=== PATIENT | male | born 1970 | race Caucasian/White ===

== ENCOUNTER 2018-06-01 08:07 | Inpatient (IN) | payer BC, OTHER ==
[~2018-06-01] VITALS: Ht 193 cm; Wt 84.7 kg
[2018-06-01] MEDS ORDERED: ketorolac trometh. 30mg/ml inj. IV ONE (08:20)
[2018-06-01] MEDS ORDERED: ondansetron/PF 4mg/2ml inj IV ONE (08:20)
[2018-06-01] MEDS ORDERED: normal saline 1000ML IV soln IVB ONE (08:20)
[2018-06-01 08:44] LABS: BASOPHILS # (AUTO) 0.1 X10'3 (0-0.2); BASOPHILS % (AUTO) 0.3 % (0-1); EOSINOPHILS # (AUTO) 0.3 X10'3 (0-0.9); EOSINOPHILS % (AUTO) 1.7 % (0-6); HEMATOCRIT 43.2 % (42.0-52.0); HEMOGLOBIN 14.6 g/dl (14.0-17.9); LYMPHOCYTES # (AUTO) 1.7 X10'3 (1.1-4.8); LYMPHOCYTES % (AUTO) 11.1 % (21-51); MEAN CORPUSCULAR HEMOGLOBIN 30.1 PG (27.0-31.0); MEAN CORPUSCULAR HGB CONC 33.8 % (33.0-36.5); MEAN CORPUSCULAR VOLUME 89.1 FL (78-98); MEAN PLATELET VOLUME 8.3 FL (7.4-10.4); MONOCYTES # (AUTO) 1.1 X10'3 (0-0.9); MONOCYTES % (AUTO) 7.2 % (2-12); NEUTROPHILS # (AUTO) 12.1 X10'3 (1.8-7.7); NEUTROPHILS % (AUTO) 79.7 % (42-75); PLATELET COUNT 185 X10'3 (140-440); RED BLOOD COUNT 4.85 X10'6 (4.70-6.10); RED CELL DISTRIBUTION WIDTH 14.2 % (11.5-14.5); WHITE BLOOD COUNT 15.1 X10'3 (4.5-11.0)
[2018-06-01 08:54] LABS: PROTHROMBIN TIME 10.3 SECONDS (9.0-12.0)
[2018-06-01 09:02] LABS: ALANINE AMINOTRANSFERASE 21 U/L (12-78); ALBUMIN 3.4 G/DL (3.4-5.0); ALBUMIN/GLOBULIN RATIO 0.9 (1.1-1.5); ALKALINE PHOSPHATASE 62 IU/L (46-116); ANION GAP 4 (8-16); ASPARTATE AMINO TRANSFERASE 13 U/L (10-37); BILIRUBIN,TOTAL 0.6 MG/DL (0.1-1.0); BLOOD UREA NITROGEN 10 MG/DL (7-18); BUN/CREATININE RATIO 8.9 (5.4-32.0); CALCIUM 9.2 MG/DL (8.5-10.1); CHLORIDE 105 MMOL/L (99-107); CREATININE 1.12 MG/DL (0.60-1.10); GLUCOSE 123 MG/DL (70-104); POTASSIUM 4.3 MMOL/L (3.5-5.1); SODIUM 137 MMOL/L (135-145); TOTAL CARBON DIOXIDE 28.2 MMOL/L (24-32); TOTAL PROTEIN 7.1 G/DL (6.4-8.2); eGFR 70 ML/MIN
[2018-06-01] MEDS ORDERED: normal saline 1000ML IV soln IV ONE (09:30)
[2018-06-01] MEDS ORDERED: morphine 4 MG/ML inj SYRINge IV ONE (09:30)
[2018-06-01] MEDS ORDERED: piperacillin/tazo 3.375gm/50ml 50 ML IV ONE (09:30)
[2018-06-01 09:54] LABS: CLARITY,URINE CLOUDY (Clear); GLUCOSE, URINE NEGATIVE (Neg); KETONES,URINE 15 mg/dl (Neg); LEUKOCYTE ESTERASE ,URINE NEGATIVE (Neg); NITRITES, URINE POSITIVE (Neg); OCCULT BLOOD,URINE TRACE-INTACT (Neg); PH,URINE 5.5 (4.8-8.0); PROTEIN,URINE 30 mg/dl (Neg)
[2018-06-01] MEDS ORDERED: NO HOME MEDS (09:54)
[2018-06-01 10:02] LABS: UA COLLECTION TYPE CLN CATCH MIDSTREAM
[2018-06-01 10:08] LABS: COLOR,URINE DARK YELLOW (Yellow)
[2018-06-01 10:11] LABS: AMORPHOUS URATES 1+; BACTERIA,URINE FEW /HPF (Neg); MUCUS STRANDS MANY /LPF (Neg); RBC,URINE 0-2 /HPF (0-2); SQUAMOUS EPITHELIAL CELL,UR FEW /LPF (FEW)
[2018-06-01 10:12] LABS: HYALINE CASTS 0-3 /LPF (NEGATIVE)
[2018-06-01] MEDS: sodium chloride 0.45% 1,000 ML IV SCH ×2 (11:19→22:24)
[2018-06-01] MEDS ORDERED: bisacodyl 10mg suppository rectal RC PRN (11:20)
[2018-06-01] MEDS ORDERED: morphine 4 MG/ML inj SYRINge IV PRN ×2 (11:20)
[2018-06-01] MEDS ORDERED: ondansetron/PF 4mg/2ml inj IV PRN (11:20)
[2018-06-01 15:00] VITALS: BP 111/50
[2018-06-01] MEDS ORDERED: metoclopramide 5 mg/ml inj IV PRN (15:40)
[2018-06-01] MEDS: ketorolac tromethamine 15mg/ml inj. IV PRN (16:16)
[2018-06-01] MEDS: piperacillin/tazo 3.375gm/50ml 50 ML IV SCH (16:53)
[2018-06-01 18:00] VITALS: BP 98/60
[2018-06-01] MEDS ORDERED: LORazepam 2 mg/ml vial IV PRN (19:15)
[2018-06-01 20:00] VITALS: BP 98/53
[2018-06-02] VITALS: BP 106/42
[2018-06-02] MEDS: piperacillin/tazo 3.375gm/50ml 50 ML IV SCH ×3 (00:02→16:14)
[2018-06-02 05:10] LABS: BASOPHILS % (AUTO) 0.1 % (0-1); EOSINOPHILS # (AUTO) 0.1 X10'3 (0-0.9); EOSINOPHILS % (AUTO) 0.6 % (0-6); HEMATOCRIT 37.4 % (42.0-52.0); HEMOGLOBIN 12.7 g/dl (14.0-17.9); LYMPHOCYTES # (AUTO) 1.5 X10'3 (1.1-4.8); LYMPHOCYTES % (AUTO) 7.4 % (21-51); MEAN CORPUSCULAR HEMOGLOBIN 29.8 PG (27.0-31.0); MEAN CORPUSCULAR VOLUME 87.6 FL (78-98); MEAN PLATELET VOLUME 8.4 FL (7.4-10.4); MONOCYTES % (AUTO) 5.1 % (2-12); NEUTROPHILS # (AUTO) 17.2 X10'3 (1.8-7.7); NEUTROPHILS % (AUTO) 86.8 % (42-75); PLATELET COUNT 160 X10'3 (140-440); RED BLOOD COUNT 4.27 X10'6 (4.70-6.10); RED CELL DISTRIBUTION WIDTH 13.7 % (11.5-14.5); WHITE BLOOD COUNT 19.9 X10'3 (4.5-11.0)
[2018-06-02 05:42] LABS: ALANINE AMINOTRANSFERASE 19 U/L (12-78); ALBUMIN 2.6 G/DL (3.4-5.0); ALBUMIN/GLOBULIN RATIO 0.8 (1.1-1.5); ALKALINE PHOSPHATASE 59 IU/L (46-116); ANION GAP 12 (8-16); ASPARTATE AMINO TRANSFERASE 15 U/L (10-37); BILIRUBIN,TOTAL 1.6 MG/DL (0.1-1.0); BLOOD UREA NITROGEN 11 MG/DL (7-18); BUN/CREATININE RATIO 9.6 (5.4-32.0); CALCIUM 8.3 MG/DL (8.5-10.1); CHLORIDE 107 MMOL/L (99-107); CREATININE 1.15 MG/DL (0.60-1.10); GLUCOSE 87 MG/DL (70-104); POTASSIUM 3.8 MMOL/L (3.5-5.1); SODIUM 140 MMOL/L (135-145); TOTAL CARBON DIOXIDE 21.5 MMOL/L (24-32); eGFR 68 ML/MIN
[2018-06-02 06:36] LABS: PLATELET ESTIMATE NORMAL; TOTAL CELLS COUNTED 100
[2018-06-02 07:00] VITALS: BP 128/53
[2018-06-02] MEDS: sodium chloride 0.45% 1,000 ML IV SCH ×2 (07:31→21:50)
[2018-06-02 14:12] LABS: C DIFF ANTIGEN NEGATIVE (NEGATIVE); C DIFF SPECIMEN=DIARRHEA? ACCEPTABLE; C DIFFICILE TOXINS A&B NEGATIVE (Neg)
[2018-06-02] MEDS: ketorolac tromethamine 15mg/ml inj. IV PRN ×2 (16:15→22:02)
[2018-06-02 18:00] VITALS: BP 98/60
[2018-06-02] MEDS: nicotine 14mg patch - 24hr TD SCH (21:00)
[2018-06-03] VITALS: BP 117/50
[2018-06-03] MEDS: piperacillin/tazo 3.375gm/50ml 50 ML IV SCH ×4 (00:08→23:07)
[2018-06-03] MEDS: sodium chloride 0.45% 1,000 ML IV SCH ×3 (03:19→16:03)
[2018-06-03 05:55] LABS: ALANINE AMINOTRANSFERASE 60 U/L (12-78); ALBUMIN 2.5 G/DL (3.4-5.0); ALBUMIN/GLOBULIN RATIO 0.7 (1.1-1.5); ALKALINE PHOSPHATASE 167 IU/L (46-116); ANION GAP 11 (8-16); ASPARTATE AMINO TRANSFERASE 55 U/L (10-37); BLOOD UREA NITROGEN 9 MG/DL (7-18); BUN/CREATININE RATIO 8.7 (5.4-32.0); CALCIUM 8.4 MG/DL (8.5-10.1); CHLORIDE 106 MMOL/L (99-107); CREATININE 1.04 MG/DL (0.60-1.10); GLUCOSE 104 MG/DL (70-104); POTASSIUM 3.8 MMOL/L (3.5-5.1); SODIUM 138 MMOL/L (135-145); TOTAL CARBON DIOXIDE 20.8 MMOL/L (24-32); TOTAL PROTEIN 6.1 G/DL (6.4-8.2); eGFR 77 ML/MIN
[2018-06-03 06:23] LABS: BASOPHILS % (AUTO) 0 % (0-1); EOSINOPHILS % (AUTO) 0.2 % (0-6); HEMATOCRIT 34.8 % (42.0-52.0); HEMOGLOBIN 11.9 g/dl (14.0-17.9); LYMPHOCYTES # (AUTO) 0.8 X10'3 (1.1-4.8); LYMPHOCYTES % (AUTO) 5.6 % (21-51); MEAN CORPUSCULAR HEMOGLOBIN 30.3 PG (27.0-31.0); MEAN CORPUSCULAR HGB CONC 34.3 % (33.0-36.5); MEAN CORPUSCULAR VOLUME 88.4 FL (78-98); MEAN PLATELET VOLUME 8.9 FL (7.4-10.4); MONOCYTES # (AUTO) 0.8 X10'3 (0-0.9); MONOCYTES % (AUTO) 5.7 % (2-12); NEUTROPHILS # (AUTO) 12.3 X10'3 (1.8-7.7); NEUTROPHILS % (AUTO) 88.5 % (42-75); PLATELET COUNT 161 X10'3 (140-440); RED BLOOD COUNT 3.94 X10'6 (4.70-6.10); WHITE BLOOD COUNT 13.9 X10'3 (4.5-11.0)
[2018-06-03 07:06] VITALS: BP 119/62
[2018-06-03] MEDS: nicotine 14mg patch - 24hr TD SCH (07:29)
[2018-06-03] MEDS: HYDROcodone/acetaminophen 5mg/325mg tablet PO PRN ×4 (07:40→23:07)
[2018-06-03 11:44] VITALS: BP 117/54
[2018-06-03 18:00] VITALS: BP 109/67
[2018-06-03] MEDS: lactobacillus rhamnosus 10,000 MMU CELLS/CAPSULE PO SCH (19:04)
[2018-06-04] VITALS: BP 114/55
[2018-06-04 05:10] LABS: BASOPHILS % (AUTO) 0.4 % (0-1); EOSINOPHILS # (AUTO) 0.2 X10'3 (0-0.9); EOSINOPHILS % (AUTO) 2.9 % (0-6); HEMATOCRIT 32.5 % (42.0-52.0); HEMOGLOBIN 10.9 g/dl (14.0-17.9); LYMPHOCYTES # (AUTO) 1.2 X10'3 (1.1-4.8); LYMPHOCYTES % (AUTO) 14.5 % (21-51); MEAN CORPUSCULAR HEMOGLOBIN 29.6 PG (27.0-31.0); MEAN CORPUSCULAR HGB CONC 33.4 % (33.0-36.5); MEAN CORPUSCULAR VOLUME 88.4 FL (78-98); MEAN PLATELET VOLUME 7.8 FL (7.4-10.4); MONOCYTES # (AUTO) 0.7 X10'3 (0-0.9); MONOCYTES % (AUTO) 8.4 % (2-12); NEUTROPHILS % (AUTO) 73.8 % (42-75); PLATELET COUNT 157 X10'3 (140-440); RED BLOOD COUNT 3.67 X10'6 (4.70-6.10); RED CELL DISTRIBUTION WIDTH 14.1 % (11.5-14.5); WHITE BLOOD COUNT 8.1 X10'3 (4.5-11.0)
[2018-06-04] MEDS: HYDROcodone/acetaminophen 5mg/325mg tablet PO PRN ×2 (05:10→23:15)
[2018-06-04] MEDS: sodium chloride 0.45% 1,000 ML IV SCH ×2 (05:11→17:52)
[2018-06-04 05:57] LABS: ALANINE AMINOTRANSFERASE 60 U/L (12-78); ALBUMIN 2.2 G/DL (3.4-5.0); ALBUMIN/GLOBULIN RATIO 0.6 (1.1-1.5); ALKALINE PHOSPHATASE 164 IU/L (46-116); ANION GAP 2 (8-16); ASPARTATE AMINO TRANSFERASE 37 U/L (10-37); BILIRUBIN,TOTAL 0.8 MG/DL (0.1-1.0); BLOOD UREA NITROGEN 6 MG/DL (7-18); BUN/CREATININE RATIO 5.5 (5.4-32.0); CALCIUM 8.4 MG/DL (8.5-10.1); CHLORIDE 107 MMOL/L (99-107); GLUCOSE 87 MG/DL (70-104); POTASSIUM 3.8 MMOL/L (3.5-5.1); SODIUM 137 MMOL/L (135-145); TOTAL CARBON DIOXIDE 27.6 MMOL/L (24-32); TOTAL PROTEIN 5.7 G/DL (6.4-8.2); eGFR 72 ML/MIN
[2018-06-04 07:00] VITALS: BP 123/55
[2018-06-04] MEDS: lactobacillus rhamnosus 10,000 MMU CELLS/CAPSULE PO SCH ×2 (07:21→19:00)
[2018-06-04] MEDS: nicotine 14mg patch - 24hr TD SCH (07:21)
[2018-06-04] MEDS: piperacillin/tazo 3.375gm/50ml 50 ML IV SCH ×3 (07:22→23:11)
[2018-06-04 10:50] VITALS: BP 125/52
[2018-06-04 18:00] VITALS: BP 110/64
[2018-06-04 23:38] VITALS: BP 102/70
[2018-06-05] MEDS: sodium chloride 0.45% 1,000 ML IV SCH (04:41)
[2018-06-05 05:06] LABS: BASOPHILS % (AUTO) 0.2 % (0-1); EOSINOPHILS # (AUTO) 0.3 X10'3 (0-0.9); EOSINOPHILS % (AUTO) 4.4 % (0-6); HEMATOCRIT 32.8 % (42.0-52.0); HEMOGLOBIN 11.1 g/dl (14.0-17.9); LYMPHOCYTES # (AUTO) 1.6 X10'3 (1.1-4.8); LYMPHOCYTES % (AUTO) 27.6 % (21-51); MEAN CORPUSCULAR HEMOGLOBIN 29.7 PG (27.0-31.0); MEAN CORPUSCULAR VOLUME 87.4 FL (78-98); MEAN PLATELET VOLUME 8.1 FL (7.4-10.4); MONOCYTES # (AUTO) 0.7 X10'3 (0-0.9); MONOCYTES % (AUTO) 11.3 % (2-12); NEUTROPHILS # (AUTO) 3.3 X10'3 (1.8-7.7); NEUTROPHILS % (AUTO) 56.5 % (42-75); PLATELET COUNT 185 X10'3 (140-440); RED BLOOD COUNT 3.75 X10'6 (4.70-6.10); RED CELL DISTRIBUTION WIDTH 13.8 % (11.5-14.5); WHITE BLOOD COUNT 5.9 X10'3 (4.5-11.0)
[2018-06-05 05:20] LABS: ALANINE AMINOTRANSFERASE 54 U/L (12-78); ALBUMIN 2.3 G/DL (3.4-5.0); ALBUMIN/GLOBULIN RATIO 0.7 (1.1-1.5); ALKALINE PHOSPHATASE 178 IU/L (46-116); ANION GAP 6 (8-16); ASPARTATE AMINO TRANSFERASE 27 U/L (10-37); BILIRUBIN,TOTAL 0.5 MG/DL (0.1-1.0); BLOOD UREA NITROGEN 6 MG/DL (7-18); BUN/CREATININE RATIO 5.6 (5.4-32.0); CALCIUM 8.6 MG/DL (8.5-10.1); CHLORIDE 107 MMOL/L (99-107); CREATININE 1.07 MG/DL (0.60-1.10); GLUCOSE 85 MG/DL (70-104); POTASSIUM 3.8 MMOL/L (3.5-5.1); SODIUM 140 MMOL/L (135-145); TOTAL CARBON DIOXIDE 26.6 MMOL/L (24-32); TOTAL PROTEIN 5.6 G/DL (6.4-8.2); eGFR 74 ML/MIN
[2018-06-05 07:09] VITALS: BP 123/75
[2018-06-05] MEDS: piperacillin/tazo 3.375gm/50ml 50 ML IV SCH ×2 (07:36→13:56)
[2018-06-05] MEDS: lactobacillus rhamnosus 10,000 MMU CELLS/CAPSULE PO SCH (07:36)
[2018-06-05] MEDS: nicotine 14mg patch - 24hr TD SCH (07:37)
[2018-06-05] MEDS ORDERED: LEVO500T2 PO (08:33)
[2018-06-05] MEDS ORDERED: METR500T4 PO (08:33)
[2018-06-05] MEDS ORDERED: HYDR-569 PO (08:33)
[2018-06-05 11:00] VITALS: BP 126/53
== END 2018-06-05 15:07 | disposition home or self-care (01) | DRG 391 ==
LOC: ER 08:08 → ED HOLD 11:19 → EDBEDREQ 14:25 → SUR 3N 14:57
PROVIDERS: ADMIT Emergency Medicine; ATTEND Internal Medicine
DX: K57.20 Diverticulitis of large intestine with perforation and abscess without bleeding (principal); E43 Unspecified severe protein-calorie malnutrition; N39.0 Urinary tract infection, site not specified; D64.9 Anemia, unspecified; F12.90 Cannabis use, unspecified, uncomplicated; R16.0 Hepatomegaly, not elsewhere classified; F17.200 Nicotine dependence, unspecified, uncomplicated; Z88.7 Allergy status to serum and vaccine; Z79.899 Other long term (current) drug therapy; Z68.22 Body mass index [BMI] 22.0-22.9, adult
CPT/HCPCS: 36415; 74176; 80053; 81001; 83605; 85025; 85610; 87040; 87070; 87088; 87324; 87449; 96361; 96365; 96375; 99285; A6250; J1885; J2270; J2405; J2543; J2765; J7030

== ENCOUNTER 2018-07-07 05:37 | Inpatient (IN) | payer BC ==
[2018-07-02 11:35] LABS: BASOPHILS # (AUTO) 0.1 X10'3 (0-0.2); BASOPHILS % (AUTO) 0.6 % (0-1); EOSINOPHILS # (AUTO) 0.3 X10'3 (0-0.9); EOSINOPHILS % (AUTO) 2.6 % (0-6); LYMPHOCYTES # (AUTO) 2.3 X10'3 (1.1-4.8); LYMPHOCYTES % (AUTO) 22.7 % (21-51); MEAN CORPUSCULAR HEMOGLOBIN 29.8 PG (27.0-31.0); MEAN CORPUSCULAR VOLUME 87.7 FL (78-98); MEAN PLATELET VOLUME 7.7 FL (7.4-10.4); MONOCYTES # (AUTO) 0.8 X10'3 (0-0.9); MONOCYTES % (AUTO) 7.5 % (2-12); NEUTROPHILS # (AUTO) 6.6 X10'3 (1.8-7.7); NEUTROPHILS % (AUTO) 66.6 % (42-75); PRE OP HEMATOCRIT 40.3 % (42.0-52.0); PRE OP HEMOGLOBIN 13.7 g/dL (14.0-17.9); PRE OP PLATELET COUNT 293 X10'3 (140-440); RED BLOOD COUNT 4.59 X10'6 (4.70-6.10); RED CELL DISTRIBUTION WIDTH 13.7 % (11.5-14.5)
[2018-07-02 11:42] LABS: CLARITY,URINE CLEAR (Clear); COLOR,URINE YELLOW (Yellow); GLUCOSE, URINE NEGATIVE (Neg); KETONES,URINE NEGATIVE (Neg); LEUKOCYTE ESTERASE ,URINE NEGATIVE (Neg); NITRITES, URINE NEGATIVE (Neg); OCCULT BLOOD,URINE NEGATIVE (Neg); PH,URINE 6.5 (4.8-8.0); PROTEIN,URINE NEGATIVE (Neg); UROBILINOGEN,URINE 0.2 E.U/dL (0.2-1.0)
[2018-07-02 11:44] LABS: UA COLLECTION TYPE NON-SPECIFIED
[2018-07-02 11:45] LABS: PRE OP PROTIME 10.2 SECONDS (9.0-12.0)
[2018-07-02 11:49] LABS: ALBUMIN 3.3 G/DL (3.4-5.0); ALBUMIN/GLOBULIN RATIO 0.9 (1.1-1.5); ALKALINE PHOSPHATASE 68 IU/L (46-116); BLOOD UREA NITROGEN 9 MG/DL (7-18); BUN/CREATININE RATIO 10.2 (5.4-32.0); CALCIUM 8.7 MG/DL (8.5-10.1); CHLORIDE 108 MMOL/L (99-107); CREATININE 0.88 MG/DL (0.60-1.10); PRE OP ALT 24 U/L (30-65); PRE OP ANION GAP 8 (8-16); PRE OP AST 12 U/L (10-37); PRE OP BILIRUB, TOTAL 0.4 MG/DL (0.0-1.0); PRE OP GLUCOSE 100 MG/DL (70-104); PRE OP POTASSIUM 4.6 MMOL/L (3.4-5.1); PRE OP SODIUM 140 MMOL/L (135-145); TOTAL CARBON DIOXIDE 24.1 MMOL/L (24-32); TOTAL PROTEIN 6.8 G/DL (6.4-8.2); eGFR > 90 ML/MIN
[~2018-07-07] VITALS: Ht 193 cm; Wt 86.2 kg
[2018-07-07] VITALS (15 sets, daily range): BP systolic 90–148; BP diastolic 55–90
[~2018-07-07 05:37] MED LIST: HYDR-569 PO; NAPR220T67 PO; ceFOXitin 2 GM ADDvantage bag 100 ML IV ONE; famotidine 20mg tablet PO ONE; ringers solution, lacted 1,000 ML IV SCH
[2018-07-07] MEDS ORDERED: LIDOcaine 1% (10mg/ml) 2ml vial ONE (05:59)
[2018-07-07] MEDS ORDERED: ceFAZolin 1000mg inj ONE ×2 (06:43→08:13)
[2018-07-07] MEDS ORDERED: BUPIVAcaine/PF 2.5mg/ml (0.25%) 10ml vial ONE (06:44)
[2018-07-07] MEDS ORDERED: propofol inj 20 ML IV ONE (07:17)
[2018-07-07] MEDS ORDERED: rocuronium 10mg/ml inj IV ONE (07:17)
[2018-07-07] MEDS ORDERED: fentaNYL /PF 50mcg/ml 5ml ampule ONE (07:17)
[2018-07-07] MEDS ORDERED: midazolam 2 mg/2 ml injection ONE (07:17)
[2018-07-07] MEDS ORDERED: sevoflurane 250ml liquid IH ONE (07:32)
[2018-07-07] MEDS ORDERED: acetaminophen 325mg tablet PO PRN (08:45)
[2018-07-07] MEDS ORDERED: mag hydrox/Alum hydrox/simeth 30ml oral suspension PO PRN (08:45)
[2018-07-07] MEDS ORDERED: CADD PCA waste documentation MC PRN (08:45)
[2018-07-07] MEDS ORDERED: magnesium hydroxide 30ml (MOM) UD suspension PO PRN (08:45)
[2018-07-07] MEDS ORDERED: naloxone 0.4 mg/ml inj IV PRN (08:45)
[2018-07-07] MEDS ORDERED: ringers solution, lacted 1,000 ML IV SCH (08:49)
[2018-07-07] MEDS ORDERED: proCHLORperazine 10 MG/2 ml inj IV PRN (08:50)
[2018-07-07] MEDS ORDERED: ondansetron/PF 4mg/2ml inj IV PRN (08:50)
[2018-07-07] MEDS ORDERED: meperidine/PF 25mg/ml syringe IV PRN ×2 (08:50)
[2018-07-07] MEDS ORDERED: morphine 4 MG/ML inj SYRINge IV PRN ×2 (08:50)
[2018-07-07] MEDS ORDERED: neostigmine methylsulfate 1 MG/ML 10ml vial ONE (09:59)
[2018-07-07] MEDS ORDERED: glycopyrrolate 0.2mg/ml inj ONE (10:00)
[2018-07-07] MEDS ORDERED: ROPIVAcaine 0.5% (5mg/ml) 30ml vial ONE ×2 (10:00→10:01)
[2018-07-07] MEDS: meperidine/PF 25mg/ml syringe IV PRN ×2 (10:46→11:02)
[2018-07-07] MEDS: HYDROmorphone/NS 1 mg/ml CADD 50 ML IV SCH ×8 (11:00→23:00)
[2018-07-07] MEDS: normal saline 1000ml 1,000 ML IV SCH ×2 (12:10→22:04)
[2018-07-07] MEDS: ceFOXitin 1 GM ADDVANTAGE BAG 50 ML IV SCH (15:54)
[2018-07-08] VITALS: BP 120/52
[2018-07-08] MEDS: ceFOXitin 1 GM ADDVANTAGE BAG 50 ML IV SCH ×3 (00:16→17:20)
[2018-07-08] MEDS: HYDROmorphone/NS 1 mg/ml CADD 50 ML IV SCH ×12 (01:00→23:00)
[2018-07-08 05:39] LABS: BASOPHILS % (AUTO) 0.1 % (0-1); EOSINOPHILS % (AUTO) 0 % (0-6); HEMATOCRIT 41.1 % (42.0-52.0); HEMOGLOBIN 14.1 g/dl (14.0-17.9); LYMPHOCYTES # (AUTO) 1.1 X10'3 (1.1-4.8); LYMPHOCYTES % (AUTO) 5.7 % (21-51); MEAN CORPUSCULAR HEMOGLOBIN 29.7 PG (27.0-31.0); MEAN CORPUSCULAR HGB CONC 34.2 % (33.0-36.5); MEAN CORPUSCULAR VOLUME 86.8 FL (78-98); MEAN PLATELET VOLUME 8.5 FL (7.4-10.4); MONOCYTES # (AUTO) 0.8 X10'3 (0-0.9); MONOCYTES % (AUTO) 4.5 % (2-12); NEUTROPHILS # (AUTO) 16.9 X10'3 (1.8-7.7); NEUTROPHILS % (AUTO) 89.7 % (42-75); PLATELET COUNT 252 X10'3 (140-440); RED BLOOD COUNT 4.73 X10'6 (4.70-6.10); RED CELL DISTRIBUTION WIDTH 14.3 % (11.5-14.5); WHITE BLOOD COUNT 18.8 X10'3 (4.5-11.0)
[2018-07-08 05:56] LABS: ALANINE AMINOTRANSFERASE 18 U/L (12-78); ALBUMIN 2.8 G/DL (3.4-5.0); ALBUMIN/GLOBULIN RATIO 0.8 (1.1-1.5); ALKALINE PHOSPHATASE 64 IU/L (46-116); ANION GAP 8 (8-16); ASPARTATE AMINO TRANSFERASE 16 U/L (10-37); BILIRUBIN,TOTAL 0.9 MG/DL (0.1-1.0); BLOOD UREA NITROGEN 11 MG/DL (7-18); BUN/CREATININE RATIO 10.2 (5.4-32.0); CALCIUM 8.3 MG/DL (8.5-10.1); CHLORIDE 106 MMOL/L (99-107); CREATININE 1.08 MG/DL (0.60-1.10); GLUCOSE 111 MG/DL (70-104); POTASSIUM 4.3 MMOL/L (3.5-5.1); SODIUM 139 MMOL/L (135-145); TOTAL CARBON DIOXIDE 25.4 MMOL/L (24-32); TOTAL PROTEIN 6.1 G/DL (6.4-8.2); eGFR 73 ML/MIN
[2018-07-08 07:06] VITALS: BP 126/55
[2018-07-08] MEDS: enoxaparin 40mg/0.4ml syringe SQ SCH (07:34)
[2018-07-08] MEDS: normal saline 1000ml 1,000 ML IV SCH ×2 (07:35→17:19)
[2018-07-08 11:00] VITALS: BP 137/56
[2018-07-08] MEDS: diphenhydrAMINE 50 mg/ml inj IV PRN (14:36)
[2018-07-08] MEDS: ondansetron/PF 4mg/2ml inj IV PRN (18:07)
[2018-07-08 20:00] VITALS: BP 130/72
[2018-07-08] MEDS: lactobacillus rhamnosus 10,000 MMU CELLS/CAPSULE PO SCH (20:18)
[2018-07-08 23:30] VITALS: BP 132/43
[2018-07-09] VITALS: BP 109/64
[2018-07-09] MEDS: ondansetron/PF 4mg/2ml inj IV PRN ×4 (00:48→20:14)
[2018-07-09] MEDS: ceFOXitin 1 GM ADDVANTAGE BAG 50 ML IV SCH ×3 (00:48→16:33)
[2018-07-09] MEDS: HYDROmorphone/NS 1 mg/ml CADD 50 ML IV SCH ×7 (00:52→13:00)
[2018-07-09] MEDS: normal saline 1000ml 1,000 ML IV SCH ×3 (02:44→20:09)
[2018-07-09 05:02] LABS: BASOPHILS # (AUTO) 0.1 X10'3 (0-0.2); BASOPHILS % (AUTO) 0.4 % (0-1); EOSINOPHILS # (AUTO) 0.1 X10'3 (0-0.9); EOSINOPHILS % (AUTO) 0.7 % (0-6); HEMATOCRIT 37.7 % (42.0-52.0); HEMOGLOBIN 12.9 g/dl (14.0-17.9); LYMPHOCYTES # (AUTO) 0.8 X10'3 (1.1-4.8); LYMPHOCYTES % (AUTO) 3.7 % (21-51); MEAN CORPUSCULAR HEMOGLOBIN 29.6 PG (27.0-31.0); MEAN CORPUSCULAR HGB CONC 34.2 % (33.0-36.5); MEAN CORPUSCULAR VOLUME 86.5 FL (78-98); MEAN PLATELET VOLUME 8.2 FL (7.4-10.4); MONOCYTES # (AUTO) 0.9 X10'3 (0-0.9); MONOCYTES % (AUTO) 4.5 % (2-12); NEUTROPHILS # (AUTO) 18.6 X10'3 (1.8-7.7); NEUTROPHILS % (AUTO) 90.7 % (42-75); PLATELET COUNT 232 X10'3 (140-440); RED BLOOD COUNT 4.36 X10'6 (4.70-6.10); RED CELL DISTRIBUTION WIDTH 14.6 % (11.5-14.5); WHITE BLOOD COUNT 20.5 X10'3 (4.5-11.0)
[2018-07-09 05:33] LABS: ALANINE AMINOTRANSFERASE 16 U/L (12-78); ALBUMIN 2.7 G/DL (3.4-5.0); ALBUMIN/GLOBULIN RATIO 0.8 (1.1-1.5); ALKALINE PHOSPHATASE 70 IU/L (46-116); ANION GAP 7 (8-16); ASPARTATE AMINO TRANSFERASE 17 U/L (10-37); BILIRUBIN,TOTAL 0.7 MG/DL (0.1-1.0); BLOOD UREA NITROGEN 9 MG/DL (7-18); BUN/CREATININE RATIO 9.7 (5.4-32.0); CALCIUM 8.8 MG/DL (8.5-10.1); CHLORIDE 101 MMOL/L (99-107); CREATININE 0.93 MG/DL (0.60-1.10); GLUCOSE 126 MG/DL (70-104); POTASSIUM 4.4 MMOL/L (3.5-5.1); SODIUM 135 MMOL/L (135-145); TOTAL CARBON DIOXIDE 26.7 MMOL/L (24-32); TOTAL PROTEIN 6.3 G/DL (6.4-8.2); eGFR 87 ML/MIN
[2018-07-09 07:19] VITALS: BP 131/66
[2018-07-09] MEDS: lactobacillus rhamnosus 10,000 MMU CELLS/CAPSULE PO SCH ×2 (07:23→20:00)
[2018-07-09] MEDS: enoxaparin 40mg/0.4ml syringe SQ SCH (07:28)
[2018-07-09 11:00] VITALS: BP 149/59
[2018-07-09] MEDS: ketorolac trometh. 30mg/ml inj. IV PRN ×2 (14:16→20:21)
[2018-07-09] MEDS: diphenhydrAMINE 50 mg/ml inj IV PRN (18:23)
[2018-07-09 18:30] VITALS: BP 119/68
[2018-07-09] MEDS: proCHLORperazine 10 MG/2 ml inj IV PRN (21:33)
[2018-07-10] VITALS: BP 137/66
[2018-07-10] MEDS: ceFOXitin 1 GM ADDVANTAGE BAG 50 ML IV SCH ×3 (00:25→16:28)
[2018-07-10] MEDS: normal saline 1000ml 1,000 ML IV SCH ×4 (02:40→16:28)
[2018-07-10] MEDS: proCHLORperazine 10 MG/2 ml inj IV PRN ×2 (04:24→13:22)
[2018-07-10] MEDS: ketorolac trometh. 30mg/ml inj. IV PRN ×3 (04:33→22:37)
[2018-07-10 05:15] LABS: BASOPHILS % (AUTO) 0.1 % (0-1); EOSINOPHILS # (AUTO) 0.1 X10'3 (0-0.9); EOSINOPHILS % (AUTO) 0.4 % (0-6); HEMATOCRIT 37.2 % (42.0-52.0); HEMOGLOBIN 12.8 g/dl (14.0-17.9); LYMPHOCYTES % (AUTO) 7.5 % (21-51); MEAN CORPUSCULAR HEMOGLOBIN 29.7 PG (27.0-31.0); MEAN CORPUSCULAR HGB CONC 34.4 % (33.0-36.5); MEAN CORPUSCULAR VOLUME 86.4 FL (78-98); MEAN PLATELET VOLUME 8.2 FL (7.4-10.4); MONOCYTES # (AUTO) 0.8 X10'3 (0-0.9); MONOCYTES % (AUTO) 5.7 % (2-12); NEUTROPHILS # (AUTO) 11.9 X10'3 (1.8-7.7); NEUTROPHILS % (AUTO) 86.3 % (42-75); PLATELET COUNT 246 X10'3 (140-440); RED BLOOD COUNT 4.31 X10'6 (4.70-6.10); RED CELL DISTRIBUTION WIDTH 14.4 % (11.5-14.5); WHITE BLOOD COUNT 13.8 X10'3 (4.5-11.0)
[2018-07-10 05:38] LABS: ALANINE AMINOTRANSFERASE 15 U/L (12-78); ALBUMIN 2.5 G/DL (3.4-5.0); ALBUMIN/GLOBULIN RATIO 0.7 (1.1-1.5); ALKALINE PHOSPHATASE 58 IU/L (46-116); ANION GAP 9 (8-16); ASPARTATE AMINO TRANSFERASE 12 U/L (10-37); BILIRUBIN,TOTAL 0.6 MG/DL (0.1-1.0); BLOOD UREA NITROGEN 17 MG/DL (7-18); BUN/CREATININE RATIO 15.2 (5.4-32.0); CALCIUM 8.5 MG/DL (8.5-10.1); CHLORIDE 101 MMOL/L (99-107); CREATININE 1.12 MG/DL (0.60-1.10); GLUCOSE 113 MG/DL (70-104); POTASSIUM 3.7 MMOL/L (3.5-5.1); SODIUM 140 MMOL/L (135-145); TOTAL PROTEIN 6.2 G/DL (6.4-8.2); eGFR 70 ML/MIN
[2018-07-10] MEDS: lactobacillus rhamnosus 10,000 MMU CELLS/CAPSULE PO SCH ×2 (07:59→19:30)
[2018-07-10] MEDS: enoxaparin 40mg/0.4ml syringe SQ SCH (07:59)
[2018-07-10 08:00] VITALS: BP 128/65
[2018-07-10] MEDS: ondansetron/PF 4mg/2ml inj IV PRN ×2 (08:09→19:30)
[2018-07-10 11:00] VITALS: BP 109/72
[2018-07-10] MEDS: metoclopramide 5 mg/ml inj IV SCH ×2 (13:23→19:30)
[2018-07-10] MEDS: diphenhydrAMINE 50 mg/ml inj IV PRN (14:40)
[2018-07-10 18:00] VITALS: BP 115/47
[2018-07-10] MEDS: morphine 2 MG/ML inj. syringe IV PRN (19:30)
[2018-07-11] VITALS: BP 112/47
[2018-07-11] MEDS: ceFOXitin 1 GM ADDVANTAGE BAG 50 ML IV SCH ×4 (00:18→23:46)
[2018-07-11] MEDS: diphenhydrAMINE 50 mg/ml inj IV PRN ×2 (00:18→23:47)
[2018-07-11] MEDS: normal saline 1000ml 1,000 ML IV SCH ×3 (01:45→23:47)
[2018-07-11] MEDS: metoclopramide 5 mg/ml inj IV SCH ×4 (01:45→20:00)
[2018-07-11] MEDS: morphine 2 MG/ML inj. syringe IV PRN (04:26)
[2018-07-11 06:06] LABS: BASOPHILS % (AUTO) 0 % (0-1); EOSINOPHILS # (AUTO) 0.2 X10'3 (0-0.9); EOSINOPHILS % (AUTO) 1.4 % (0-6); HEMATOCRIT 34.3 % (42.0-52.0); HEMOGLOBIN 11.6 g/dl (14.0-17.9); LYMPHOCYTES # (AUTO) 1.1 X10'3 (1.1-4.8); LYMPHOCYTES % (AUTO) 9.1 % (21-51); MEAN CORPUSCULAR HEMOGLOBIN 29.3 PG (27.0-31.0); MEAN CORPUSCULAR HGB CONC 33.8 % (33.0-36.5); MEAN CORPUSCULAR VOLUME 86.7 FL (78-98); MEAN PLATELET VOLUME 8.3 FL (7.4-10.4); MONOCYTES # (AUTO) 0.7 X10'3 (0-0.9); MONOCYTES % (AUTO) 5.9 % (2-12); NEUTROPHILS # (AUTO) 9.9 X10'3 (1.8-7.7); NEUTROPHILS % (AUTO) 83.6 % (42-75); PLATELET COUNT 234 X10'3 (140-440); RED BLOOD COUNT 3.95 X10'6 (4.70-6.10); RED CELL DISTRIBUTION WIDTH 14.3 % (11.5-14.5); WHITE BLOOD COUNT 11.8 X10'3 (4.5-11.0)
[2018-07-11 06:26] LABS: ALANINE AMINOTRANSFERASE 15 U/L (12-78); ALBUMIN 2.5 G/DL (3.4-5.0); ALBUMIN/GLOBULIN RATIO 0.7 (1.1-1.5); ALKALINE PHOSPHATASE 64 IU/L (46-116); ANION GAP 6 (8-16); ASPARTATE AMINO TRANSFERASE 14 U/L (10-37); BILIRUBIN,TOTAL 0.6 MG/DL (0.1-1.0); BLOOD UREA NITROGEN 14 MG/DL (7-18); BUN/CREATININE RATIO 14.9 (5.4-32.0); CALCIUM 8.9 MG/DL (8.5-10.1); CHLORIDE 104 MMOL/L (99-107); CREATININE 0.94 MG/DL (0.60-1.10); GLUCOSE 100 MG/DL (70-104); POTASSIUM 3.4 MMOL/L (3.5-5.1); SODIUM 140 MMOL/L (135-145); TOTAL CARBON DIOXIDE 30.5 MMOL/L (24-32); TOTAL PROTEIN 6.1 G/DL (6.4-8.2); eGFR 86 ML/MIN
[2018-07-11] MEDS: lactobacillus rhamnosus 10,000 MMU CELLS/CAPSULE PO SCH ×2 (07:27→20:00)
[2018-07-11] MEDS: ketorolac trometh. 30mg/ml inj. IV PRN ×3 (07:28→23:47)
[2018-07-11] MEDS: enoxaparin 40mg/0.4ml syringe SQ SCH (07:29)
[2018-07-11 07:44] VITALS: BP 126/57
[2018-07-11 12:02] VITALS: BP 116/56
[2018-07-11 20:00] VITALS: BP 123/62
[2018-07-11 23:00] VITALS: BP 120/53
[2018-07-12] MEDS: metoclopramide 5 mg/ml inj IV SCH ×3 (02:00→14:00)
[2018-07-12 05:23] LABS: BASOPHILS % (AUTO) 0.2 % (0-1); EOSINOPHILS # (AUTO) 0.8 X10'3 (0-0.9); EOSINOPHILS % (AUTO) 8.4 % (0-6); HEMATOCRIT 29.9 % (42.0-52.0); HEMOGLOBIN 10.2 g/dl (14.0-17.9); LYMPHOCYTES # (AUTO) 1.5 X10'3 (1.1-4.8); LYMPHOCYTES % (AUTO) 15.5 % (21-51); MEAN CORPUSCULAR HEMOGLOBIN 29.4 PG (27.0-31.0); MEAN CORPUSCULAR VOLUME 86.5 FL (78-98); MEAN PLATELET VOLUME 7.9 FL (7.4-10.4); MONOCYTES # (AUTO) 0.7 X10'3 (0-0.9); MONOCYTES % (AUTO) 7.9 % (2-12); NEUTROPHILS # (AUTO) 6.4 X10'3 (1.8-7.7); PLATELET COUNT 233 X10'3 (140-440); RED BLOOD COUNT 3.46 X10'6 (4.70-6.10); RED CELL DISTRIBUTION WIDTH 14.3 % (11.5-14.5); WHITE BLOOD COUNT 9.4 X10'3 (4.5-11.0)
[2018-07-12 05:58] LABS: ALANINE AMINOTRANSFERASE 29 U/L (12-78); ALBUMIN 2.1 G/DL (3.4-5.0); ALBUMIN/GLOBULIN RATIO 0.6 (1.1-1.5); ALKALINE PHOSPHATASE 105 IU/L (46-116); ANION GAP 7 (8-16); ASPARTATE AMINO TRANSFERASE 28 U/L (10-37); BILIRUBIN,TOTAL 0.6 MG/DL (0.1-1.0); BLOOD UREA NITROGEN 12 MG/DL (7-18); BUN/CREATININE RATIO 13.6 (5.4-32.0); CALCIUM 8.4 MG/DL (8.5-10.1); CHLORIDE 107 MMOL/L (99-107); CREATININE 0.88 MG/DL (0.60-1.10); GLUCOSE 97 MG/DL (70-104); POTASSIUM 3.5 MMOL/L (3.5-5.1); SODIUM 141 MMOL/L (135-145); TOTAL CARBON DIOXIDE 27.4 MMOL/L (24-32); TOTAL PROTEIN 5.4 G/DL (6.4-8.2); eGFR > 90 ML/MIN
[2018-07-12 07:12] VITALS: BP 123/54
[2018-07-12] MEDS: enoxaparin 40mg/0.4ml syringe SQ SCH (08:00)
[2018-07-12] MEDS: lactobacillus rhamnosus 10,000 MMU CELLS/CAPSULE PO SCH (08:09)
[2018-07-12] MEDS: ceFOXitin 1 GM ADDVANTAGE BAG 50 ML IV SCH ×2 (08:09→16:50)
[2018-07-12] MEDS: normal saline 1000ml 1,000 ML IV SCH (10:53)
[2018-07-12 11:32] VITALS: BP 127/60
[2018-07-12] MEDS ORDERED: FLUC100T PO (18:40)
[2018-07-12] MEDS ORDERED: NYST1000 PO (18:40)
== END 2018-07-12 19:15 | disposition home or self-care (01) | DRG 330 ==
LOC: PAS IN 05:37 → EDSTATUS 07:30 → SUR 3N 11:46
PROVIDERS: ADMIT Surgery; ATTEND Surgery
PROC: 0DBN4ZZ Excision of Sigmoid Colon, Percutaneous Endoscopic Approach (ICD-10-PCS; principal; 2018-07-07 07:32)
PROC: 0T788DZ Dilation of Bilateral Ureters with Intraluminal Device, Via Natural or Artificial Opening Endoscopic (ICD-10-PCS; 2018-07-07 07:32)
DX: K57.20 Diverticulitis of large intestine with perforation and abscess without bleeding (principal); K56.7 Ileus, unspecified; F17.200 Nicotine dependence, unspecified, uncomplicated; Z88.1 Allergy status to other antibiotic agents; Z88.8 Allergy status to other drugs, medicaments and biological substances
CPT/HCPCS: 36415; 74018; 76000; 80053; 81003; 85025; 85610; 85730; 87070; 93005; A7000; C1758; C1769; J0690; J0694; J0780; J1170; J1200; J1650; J1885; J2175; J2250; J2270; J2405; J2704; J2710; J2765; J2795; J3010; J3490; J7030; J7120